=== PATIENT | female | born 1955 | race Caucasian/White ===

== ENCOUNTER 2020-09-13 21:48 | Emergency (ER) | payer MEDICARE ==
[~2020-09-13 21:48] MED LIST: COLACE 100MG C100 MG PO; GABAPENTIN300 MG PO; IBUPROFEN600 MG PO; KLONOPIN TAB 00.5 MG PO; NORCO 5-325 TA1 EACH PO; PROTONIX40 MG PO; PROZAC40 MG PO; REMERON15 MG PO; TRAZODONE HCL50 MG PO; VENTOLIN/PROVE0.5 ML INH; [UNRECOGNIZED DRUG - OTHER]
[2020-09-13 23:04] LABS: HEMOGLOBIN 13.6 gm/dl (12.3-15.3); RED BLOOD COUNT 4.4 M/UL (4.00-5.10); WHITE BLOOD COUNT 7.6 K/UL (4.5-11.0)
[2020-09-13 23:21] LABS: BUN/CREATININE RATIO 12 (0-10)
[2020-09-14] MEDS ORDERED: BENTYL 20MG TAB20 MG PO (01:07)
[2020-09-14] MEDS ORDERED: ZOFRAN ODT 4 MG4 MG PO (01:07)
== END 2020-09-14 01:19 | disposition home or self-care (01) ==
LOC: ER1 21:48
PROVIDERS: Family Medicine
DX: K92.2 Gastrointestinal hemorrhage, unspecified (principal); K52.9 Noninfective gastroenteritis and colitis, unspecified; I10 Essential (primary) hypertension; E78.5 Hyperlipidemia, unspecified; J44.9 Chronic obstructive pulmonary disease, unspecified; F17.210 Nicotine dependence, cigarettes, uncomplicated
CPT/HCPCS: 80053; 81001; 82272; 83690; 85025; 85610; 85730; 99284; Q9967

== ENCOUNTER 2021-03-15 20:28 | Emergency (ER) | payer MEDICARE ==
[~2021-03-15 20:28] MED LIST changes: +BENTYL 20MG TAB20 MG PO; +ZOFRAN ODT 4 MG4 MG PO
[2021-03-15 21:29] LABS: HEMOGLOBIN 14.4 gm/dl (12.3-15.3); RED BLOOD COUNT 4.58 M/UL (4.00-5.10); WHITE BLOOD COUNT 9.6 K/UL (4.5-11.0)
[2021-03-15 21:54] LABS: BUN/CREATININE RATIO 12 (0-10)
[2021-03-16] MEDS ORDERED: OMNICEF 300 MG300 MG PO (01:54)
== END 2021-03-16 02:15 | disposition home or self-care (01) ==
LOC: ER1 20:28
PROVIDERS: Physician Assistant
DX: N39.0 Urinary tract infection, site not specified (principal); K52.9 Noninfective gastroenteritis and colitis, unspecified; E78.5 Hyperlipidemia, unspecified; I10 Essential (primary) hypertension; J44.9 Chronic obstructive pulmonary disease, unspecified; Z90.49 Acquired absence of other specified parts of digestive tract; Z91.012 Allergy to eggs; Z20.822 Contact with and (suspected) exposure to COVID-19
CPT/HCPCS: 80053; 81001; 83690; 85025; 87086; 99284; Q9967; U0002

== ENCOUNTER → 2021-11-26 | Outpatient (CLI) | payer MEDICARE ==
[~2021-11-26] MED LIST changes: +AMOX TR-K CLV1 EAC4 PO; +OMNICEF 300 MG300 MG PO; +ZOFRAN 4 MG TAB4 MG PO
== END ==
LOC: KOH-I 16:16
DX: M25.551 Pain in right hip (principal)
CPT/HCPCS: 73502

== ENCOUNTER → 2021-12-02 | Outpatient (CLI) | payer MEDICARE | LOC: US 09:15 | DX: M25.851 Other specified joint disorders, right hip (principal); M25.551 Pain in right hip | CPT/HCPCS: 76882 ==